=== PATIENT | male | born 1975 | race African-American/Black ===

== ENCOUNTER 2021-08-12 21:51 | Emergency (ER) | payer SELFPAY ==
[~2021-08-12] VITALS: Ht 172.7 cm; Wt 93.1 kg
[2021-08-12 22:13] LABS: BASO # 0.1 x10^3/uL (0.0-0.2); BASO % 1 % (0-3); EOS # 0.2 x10^3/uL (0.0-0.7); EOS % 1 % (0-3); LYMPH # 2.2 x10^3/uL (1.0-4.8); LYMPH % 21 % (24-48); MEAN CORPUSCULAR HEMOGLOBIN 32 pg (25-35); MEAN CORPUSCULAR HGB CONC 36 g/dL (31-37); MEAN CORPUSCULAR VOLUME 91 fL (79-100); MONO # 1.1 x10^3/uL (0.0-1.1); MONO % 10 % (0-9); NEUT # 7.2 x10^3/uL (1.8-7.7); NEUT % 67 % (31-73); PLATELET COUNT 241 x10^3/uL (140-400); RED BLOOD COUNT 4.64 x10^6/uL (4.30-5.70); RED CELL DISTRIBUTION WIDTH 12.9 % (11.5-14.5); WHITE BLOOD COUNT 10.7 x10^3/uL (4.0-11.0)
[2021-08-12] MEDS ORDERED: IV NORMAL SALINE 1000ML BAG 1,000 ML IV ONE ×2 (22:15)
--- NOTE | 2021-08-12 22:16 | PHYS DOC ---
Adult General Chief Complaint Chief Complaint: CHEST PAIN-NON CARDIAC NATURE HPI HPI The patient is a 46-year-old male brought in by his ex- for evaluation of bizarre behavior. Patient was reportedly acting very strange and agitated at a family member's house. Family believe he used PCP prior to arrival. Patient is agitated, though verbally redirectable, and does not articulate any specific complaints. He appears to be under the influence of psychostimulants. After repeated prompting he states "I am worried about my heart." He will not provide further history and will not elaborate about why he is worried about his heart. Vital signs are notable for mild tachycardia with rhythm appearing to be sinus tachycardia on the monitor. They are otherwise reassuring. Blood glucose is appropriate here. Review of Systems Review of Systems Review of systems not able to be completed due to intoxicated patient. Current Medications Current Medications Current Medications Medications (Trade) Dose Ordered Sig/Jose Start Time Stop Time Status Last Admin Dose Admin Lorazepam (Ativan Inj) 1.5 mg 1X ONCE 08/12/21 22:15 08/12/21 22:20 DC 08/12/21 22:26 1.5 MG Sodium Chloride 1,000 ml @ 1,000 mls/hr 1X ONCE 08/12/21 22:15 08/12/21 23:14 DC 08/12/21 23:52 1,000 MLS/HR Allergies Allergies Allergies Coded Allergies Type Severity Reaction Last Updated Verified doxycycline Allergy Intermediate 08/12/21 Yes Physical Exam Physical Exam 46-year-old male appearing nontoxic and in no acute distress, though mildly agitated and occasionally making some bizarre statements. Appears to be intoxicated. Head is normocephalic and atraumatic. Neck is supple and nontender. Oropharynx is moist. Lungs are clear to auscultation at all stations. There is a normal S1 and S2 without rubs or gallops and capillary refill is appropriate, less than 2 seconds globally. Abdomen is soft, nontender and nondistended. Skin is warm and dry without cyanosis, clubbing or edema. Psychiatrically, the patient is mildly agitated and makes a number of very bizarre statements but is verbally redirectable and calm. Neurologically, patient moves all extremities equally, is alert and appropriately responsive and no lateralizing deficits are seen. He ambulated into the ED with a narrow, steady, non-ataxic gait. Current Patient Data Lab Values Laboratory Tests Test 08/12/21 22:00 08/12/21 22:55 08/13/21 01:30 White Blood Count 10.7 x10^3/uL (4.0-11.0) Red Blood Count 4.64 x10^6/uL (4.30-5.70) Hemoglobin 15.0 g/dL (13.0-17.5) Hematocrit 42.0 % (39.0-53.0) Mean Corpuscular Volume 91 fL (79-100) Mean Corpuscular Hemoglobin 32 pg (25-35) Mean Corpuscular Hemoglobin Concent 36 g/dL (31-37) Red Cell Distribution Width 12.9 % (11.5-14.5) Platelet Count 241 x10^3/uL (140-400) Neutrophils (%) (Auto) 67 % (31-73) Lymphocytes (%) (Auto) 21 % (24-48) L Monocytes (%) (Auto) 10 % (0-9) H Eosinophils (%) (Auto) 1 % (0-3) Basophils (%) (Auto) 1 % (0-3) Neutrophils # (Auto) 7.2 x10^3/uL (1.8-7.7) Lymphocytes # (Auto) 2.2 x10^3/uL (1.0-4.8) Monocytes # (Auto) 1.1 x10^3/uL (0.0-1.1) Eosinophils # (Auto) 0.2 x10^3/uL (0.0-0.7) Basophils # (Auto) 0.1 x10^3/uL (0.0-0.2) Sodium Level 140 mmol/L (136-145) Potassium Level 3.4 mmol/L (3.5-5.1) L Chloride Level 104 mmol/L (98-107) Carbon Dioxide Level 26 mmol/L (21-32) Anion Gap 10 (6-14) Blood Urea Nitrogen 9 mg/dL (8-26) Creatinine 1.2 mg/dL (0.7-1.3) Estimated GFR (Cockcroft-Gault) 65.2 BUN/Creatinine Ratio 8 (6-20) Glucose Level 108 mg/dL (70-99) H Calcium Level 9.2 mg/dL (8.5-10.1) Total Bilirubin 0.8 mg/dL (0.2-1.0) Aspartate Amino Transferase (AST) 20 U/L (15-37) Alanine Aminotransferase (ALT) 37 U/L (16-63) Alkaline Phosphatase 95 U/L (46-116) Creatine Kinase 299 U/L (39-308) Troponin I High Sensitivity 9 ng/L (4-75) 10 ng/L (4-75) Total Protein 8.2 g/dL (6.4-8.2) Albumin 3.9 g/dL (3.4-5.0) Albumin/Globulin Ratio 0.9 (1.0-1.7) L Lipase 171 U/L (73-393) Salicylates Level < 0.2 mg/dL (2.8-20.0) L Salicylate Last Dose Date Unk Salicylate Last Dose Time Unk Acetaminophen Level < 2 mcg/ml (10-30) L Acetaminophen Last Dose Date Unk Acetaminophen Last Dose Time Unk Ethyl Alcohol Level < 10 mg/dL (0-10) Urine Collection Type Unknown Urine Color (Auto) Yellow Urine Turbidity Hazy Urine pH (Auto) 6.5 (<5.0-8.0) Urine Specific [place] 1.021 (1.000-1.030) Urine Protein (Auto) 50 mg/dL (Negative) Urine Glucose (Auto)(UA) Negative mg/dL (Negative) Urine Ketones (Auto) Trace mg/dL (Negative) Urine Blood (Auto) Negative (Negative) Urine Nitrite (Auto) Negative (Negative) Urine Bilirubin (Auto) Negative (Negative) Urine Urobilinogen (Auto) Normal mg/dL (Normal) Urine Leukocyte Esterase (Auto) Negative (Negative) Urine RBC 1-2 /HPF (0-2) Urine WBC 1-4 /HPF (0-4) Urine Squamous Epithelial Cells Mod /LPF Urine Bacteria 0 /HPF (0-FEW) Urine Hyaline Casts Moderate /HPF Urine Mucus Marked /LPF Urine Opiates Screen Neg (NEG) Urine Methadone Screen Neg (NEG) Urine Barbiturates Neg (NEG) Urine Phencyclidine Screen Pos (NEG) Urine Amphetamine/Methamphetamine Neg (NEG) Urine Benzodiazepines Screen Neg (NEG) Urine Cocaine Screen Neg (NEG) Urine Cannabinoids Screen Pos (NEG) Urine Ethyl Alcohol Neg (NEG) Laboratory Tests 08/12/21 22:00 Laboratory Tests 08/12/21 22:00 EKG EKG Sinus rhythm, rate 124, no acute ST elevation or depression, ND 140, QRS 86, QTc 438, EP interpretation. Nonischemic tracing, intervals appropriate. Radiology/Procedures Radiology/Procedures [] Course & Med Decision Making Course & Med Decision Making We will check labs and imaging as noted and will then reevaluate. We will give some IV fluids and a dose of lorazepam. We will allow the patient to rest and sober, will evaluate the results of lab work and will determine next best steps. 0200: Large work-up as above is unremarkable aside from evidence of PCP and marijuana positivity on UDS. Asked again whether he smoked PCP before he came to the hospital, he admits that he did. Ex- reports that this is the first time in more than a decade that he has used PCP but that he used to use it regularly. He is now alert and oriented x4, calm, cooperative, appropriately communicative and ambulatory with a narrow, steady gait. Ex- is going to take him home and keep an eye on him. She understands that if he feels worse instead of better or develops other new symptoms of concern that he should return to the emergency department right away for reevaluation. All questions are answered. Yobani Disclaimer Yobani Disclaimer This electronic medical record was generated, in whole or in part, using a voice recognition dictation system. Departure Departure Impression: Primary Impression: Phencyclidine (PCP) intoxication Additional Impression: Drug abuse Disposition: HOME / SELF CARE / HOMELESS Condition: IMPROVED Patient Instructions: Drug Abuse, FAQs Additional Instructions: Follow-up very closely with your primary care doctor in the office in the next 2 to 4 days for a reevaluation of your symptoms and a discussion of next best steps in care. Drink plenty fluids to stay hydrated and get plenty of rest. Do not use illegal drugs like PCP to reduce serious risks to your health. Return to the emergency department right away for worsening symptoms of any kind or with any other new symptoms of concern. Problem Qualifiers Primary Impression: Phencyclidine (PCP) intoxication Complication of substance-induced condition: uncomplicated Qualified Codes: F16.920 - Hallucinogen use, unspecified with intoxication, uncomplicated MATT MOODY MD Aug 12, 2021 22:16
[2021-08-12 22:23] LABS: CALCIUM 9.2 mg/dL (8.5-10.1); CREATININE 1.2 mg/dL (0.7-1.3); GFR 65.2; POTASSIUM 3.4 mmol/L (3.5-5.1)
[2021-08-12 22:26] LABS: ACETAMIN < 2 mcg/ml (10-30); ETHANOL < 10 mg/dL (0-10); SALIC < 0.2 mg/dL (2.8-20.0)
--- NOTE | 2021-08-12 22:26 | RAD ---
XR CHEST 1V INDICATION: tachycardia . COMPARISON STUDY: None. FINDINGS: Lungs: Normal lung volume. No pulmonary mass or consolidation. The tracheobronchial tree and hilar st ructures are normal. Pleura: No pleural effusion or pneumothorax. Heart and Mediastinum: The cardiomediastinal silhouette is normal. Mild tortuosity of the thoracic ao rta. IMPRESSION: No acute cardiopulmonary process. Electronically signed by: Boubacar Benavidez MD (08/12/2021 10:23 PM) [facility]ITALRandi
[2021-08-12 22:29] LABS: ALBUMIN 3.9 g/dL (3.4-5.0); ALBUMIN/GLOBULIN RATIO 0.9 (1.0-1.7); TOTAL BILIRUBIN 0.8 mg/dL (0.2-1.0); TOTAL PROTEIN 8.2 g/dL (6.4-8.2)
[2021-08-12 23:20] LABS: BARBITURATES NEG (NEG); BENZODIAZEPINES NEG (NEG); CANNABINOIDS POS (NEG); COCAINE NEG (NEG); METHADONE NEG (NEG); OPIATES NEG (NEG); PHENCYCLIDINE POS (NEG)
[2021-08-12 23:22] LABS: AMPHETAMINE/METHAMPHETAMINE NEG (NEG)
[2021-08-12 23:27] LABS: BACTERIA,URINE 0 /HPF (0-FEW); HYALINE CASTS, URINE MODERATE /HPF
[2021-08-12 23:30] VITALS: BP 123/77
--- NOTE | 2021-08-14 10:38 | EKG ---
[facility] [address] [place] [id number] Test Date: 2021-08-12 Test Time: 21:57:07 Pat Name: RENNY OAKLEY Department: Room: Gender: [employer] Department Chair: : 1975 Requested By: MATT MOODY Order Number: [id number] Reading MD: Measurements Intervals [place] Rate: 124 P: 57 MD: 140 QRS: -26 QRSD: 86 T: 78 QT: 302 QTc: 438 Interpretive Statements SINUS TACHYCARDIA COMPLEX(ES) WITH ABERRANT INTRAVENTRICULAR CONDUCTION LEFTWARD AXIS QRS(T) CONTOUR ABNORMALITY CONSIDER ANTEROSEPTAL MYOCARDIAL DAMAGE ST & T ABNORMALITY, CONSIDER HIGH LATERAL ISCHEMIA OR LEFT VENTRICULAR STRAIN ABNORMAL ECG RI6.02 No previous ECG available for comparison
== END 2021-08-13 08:32 | disposition home or self-care (01) ==
LOC: ER 21:51
DX: F16.129 Hallucinogen abuse with intoxication, unspecified (principal); R45.1 Restlessness and agitation; Z88.1 Allergy status to other antibiotic agents
CPT/HCPCS: 36415; 71045; 80053; 80307; 80329; 81001; 82550; 83690; 84484; 85025; 93005; 96361; 96374; 99285; G0480; J2060; J7030